=== PATIENT | female | born 1950 | race Caucasian/White ===

== ENCOUNTER → 2016-05-20 09:37 | Outpatient (CLI) | payer BC ==
[2016-01-22 13:54] VITALS: BMI 29.1
[~2016-05-20 09:37] MED LIST: BAYER CHEWABLE81 MG PO; BENADRYL25 MG PO; CYMBALTA60 MG PO; MELATONIN 10 M1 EACH PO
== END | disposition home or self-care (01) ==
LOC: D.RAD 09:37
DX: Z48.89 Encounter for other specified surgical aftercare (principal)

== ENCOUNTER → 2017-05-14 17:38 | Outpatient (CLI) | payer BC ==
[2016-01-22 13:54] VITALS: BMI 29.1
== END | disposition home or self-care (01) ==
LOC: D.MAMMO 13:15
DX: Z12.31 Encounter for screening mammogram for malignant neoplasm of breast (principal)

== ENCOUNTER → 2018-05-14 10:00 | Day surgery (SDC) | payer MEDICARE, BC ==
[2018-05-13 09:00] LABS: HEMATOCRIT 43.7 % (36.0-48.0); HEMOGLOBIN 14.4 g/dL (12-16); MCH 28.4 pg (26.0-34.0); MCV 86.2 fL (80.0-100.0); MEAN PLATELET VOLUME 10.2 fL (7.4-10.4); RBC 5.07 10x6/uL (4.00-5.40); RDW 14.1 % (11.5-14.5); WBC 5.3 10x3/uL (4.8-10.8)
[~2018-05-14] VITALS: Ht 170.2 cm; Wt 88.5 kg
[~2018-05-14 10:00] MED LIST changes: +ALEVE220 MG PO; +CBD OIL; +DEMEROL100 MG PO; +FOLBIC RF TABL1 EACH PO
[2018-05-14 10:53] VITALS: BP 141/81; Ht 170.2 cm; Wt 88.5 kg
--- NOTE | 2018-05-14 13:38 | OP ---
PATIENT NAME: HELGA TEJADA MEDICAL RECORD: [id number] :52 LOCATION:[facility] ADMISSION DATE: SURGEON: CAMILO GARCIAS MD DATE OF OPERATION: 05/14/2018 PREOPERATIVE DIAGNOSIS: Trigger thumb of the right hand. POSTOPERATIVE DIAGNOSIS: Trigger thumb of the right hand. PROCEDURE: Right trigger thumb release. SURGEON: Camilo Garcias MD ANESTHESIA: General. INTRAOPERATIVE COMPLICATIONS: None. SUMMARY OF PATHOLOGIC FINDINGS: The patient had a very tight A1 binh of the trigger thumb with nodularity of the tendon consistent with preoperative diagnosis. OPERATIVE SUMMARY IN DETAIL: After obtaining the appropriate preoperative orthopedic surgery consent as well as anesthetic consultation, evaluation and clearance, the patient was brought to the operating room and placed on the operating table in supine position. After general laryngeal mask airway was administered, tourniquet was placed on the proximal aspect of the right upper extremity. Right upper extremity was then prepped and draped in routine sterile fashion. The arm was elevated and exsanguinated, tourniquet was inflated to 250 mmHg. An incision was made directly over the A1 binh, taken down to the level of the A1 binh with the digital nerves identified and retracted. The A1 binh was incised in its entirety, some tendon was inspected and found to be without evidence of rupture. The wound was irrigated and closed with 4-0 Prolene. The area was locally anesthetized with 0.25% Marcaine plain. Sterile dressings were applied. Tourniquet was deflated. The patient was awakened and taken to the recovery room in stable condition. All final needle and sponge counts were correct. TRANSINT:[id number] Voice Confirmation ID: [id number] DOCUMENT ID: [id number] CAMILO GARCIAS MD at 1338 CC: [id number] DICTATION DATE: 05/14/18 1218 MEDICAL TECHNICIAN: 05/14/18 1336 [facility] [place] [id number] [place] [id number]
== END | disposition home or self-care (01) ==
LOC: D.OPS 10:00 → D.PAN 13:30 → D.OPS 13:30 → D.PAN 15:05 → D.OPS 16:05
PROVIDERS: Anesthesiology; ATTEND Orthopaedic Surgery
DX: M65.311 Trigger thumb, right thumb (principal); Z01.812 Encounter for preprocedural laboratory examination

== ENCOUNTER → 2019-05-25 18:44 | Outpatient (CLI) | payer MEDICARE, BC ==
[2018-05-14 10:53] VITALS: BMI 30.6
== END | disposition home or self-care (01) ==
LOC: D.MAMMO 13:45
PROVIDERS: ATTEND Family Medicine
DX: Z12.31 Encounter for screening mammogram for malignant neoplasm of breast (principal)